=== PATIENT | female | born 1960 | race Caucasian/White ===

== ENCOUNTER 2025-05-11 14:27 | Inpatient (IN) | payer OTHER, SELFPAY ==
[~2025-05-11] VITALS: Ht 166.4 cm; Wt 66.1 kg
[~2025-05-11 14:27] MED LIST: OMEP20CA74 PO
[2025-05-11 14:55] LABS: Hematocrit 38.9 % (36.0-46.0); Hemoglobin 13.3 g/dL (12.2-16.2); Mean Corpuscular Hemoglobin 32.2 pg (28.0-32.0); Mean Corpuscular Volume 94.5 fL (80.0-100.0); Nucleated Red Blood Cells % 0.0 %
--- NOTE | 2025-05-11 15:04 | DVH ---
CHEST RADIOGRAPH Indication: CHEST PAIN Technique: Single frontal view of the chest was obtained Comparison: None FINDINGS: Lines and Tubes: None Lungs: No focal consolidation. Pleura: No effusion. No pneumothorax. Cardiomediastinal contours: Unremarkable Bones: No acute osseous abnormality. IMPRESSION: 1. No acute cardiopulmonary disease.
[2025-05-11 15:06] LABS: Potassium 3.9 mmol/L (3.5-5.1); Sodium 143 mmol/L (136-145)
[2025-05-11 15:07] LABS: Anion Gap 8 (5-15); Carbon Dioxide 28 mmol/L (20-31)
[2025-05-11 15:08] LABS: Calcium 9.9 mg/dL (8.7-10.4)
[2025-05-11 15:12] LABS: BUN/Creatinine Ratio 10.3 (10.0-20.0); Glucose 91 mg/dL (74-106)
[2025-05-11 15:13] LABS: Blood Urea Nitrogen 7 mg/dL (9-23); Chloride 107 mmol/L (98-107)
--- NOTE | 2025-05-11 17:30 | ECG ---
[facility] Test Date: 2025-05-11 Test Time: 14:32:02 Pat Name: FAREED LAMBERT Department: Room: Gender: F Formulation Scientist: DANNIELLE : 1960 Requested By: EMERGENCY EMERGENCY Order Number: [id number] Reading MD: Measurements Intervals [place] Rate: 84 P: 81 DC: 152 QRS: 117 QRSD: 91 T: 68 QT: 378 QTc: 447 Interpretive Statements Sinus rhythm Right axis deviation Baseline wander in lead(s) V2 Please click the below link to view image of tracing.
--- NOTE | 2025-05-11 17:30 | ECG ---
[facility] Test Date: 2025-05-11 Test Time: 15:23:07 Pat Name: FAREED LAMBERT Department: Room: Gender: F Freelance Interpreter/Translator: JESSICA : 1960 Requested By: EMERGENCY EMERGENCY Order Number: [id number] Reading MD: Measurements Intervals [place] Rate: 60 P: 72 IA: 168 QRS: 107 QRSD: 94 T: 58 QT: 406 QTc: 406 Interpretive Statements Sinus rhythm Atrial premature complex Right axis deviation Please click the below link to view image of tracing.
--- NOTE | 2025-05-11 17:31 | ECG ---
[facility] Test Date: 2025-05-11 Test Time: 17:24:58 Pat Name: FAREED LAMBERT Department: Room: Gender: F Quality Facilitator: JESSICA : 1960 Requested By: EMERGENCY EMERGENCY Order Number: [id number] Reading MD: Measurements Intervals [place] Rate: 60 P: 82 [place]: 185 QRS: 114 QRSD: 96 T: 43 QT: 403 QTc: 403 Interpretive Statements Sinus rhythm Left atrial enlargement Right axis deviation Please click the below link to view image of tracing.
[2025-05-11] MEDS ORDERED: MORPHINE SULFATE 4 MG/ML SYR/VIAL IV PRN (22:30)
[2025-05-11] MEDS: ATORVASTATIN 20 MG TAB PO ONE (22:30)
[2025-05-11] MEDS ORDERED: NITROGLYCERIN 0.4 MG SL TAB SL PRN (22:30)
[2025-05-11 23:34] LABS: Alanine Aminotransferase 22.0 U/L (7-40); Albumin 4.4 g/dL (3.2-4.8); Alkaline Phosphatase 95.0 U/L (46-116); Bilirubin, Total 0.8 mg/dL (0.2-1.0); Total Protein 6.7 g/dL (5.7-8.2)
[2025-05-12] VITALS (9 sets, daily range): BP systolic 104–127; BP diastolic 59–73; PULSE 57–77; RESP 16–20; TEMP 97–98.3; O2SAT 98–99
--- NOTE | 2025-05-12 00:01 | DVH ---
CLINICAL HISTORY: dizziness TECHNIQUE: Ramirez-scale, Color and Duplex Doppler imaging of the bilateral carotid systems was performe d. COMPARISON: None Findings: Right Carotid system: There is minimal plaque present in the right carotid system. Left Carotid system: There is minimal plaque present in the left carotid system. The following flow velocities were obtained (cm/sec). Right Carotid System: ICA PSV: 105 cm/sec ICA PDV: 32 cm/sec ICA/CCA Ratio: 1.5 Left Carotid System: ICA PSV: 116 cm/sec ICA PDV: 41 cm/sec ICA/CCA Ratio: 1.6 The right and left common carotid and external carotid arteries are patent. There is antegrade flow i n both vertebral arteries and external carotid arteries. IMPRESSION: LESS THAN 50% RIGHT ICA NARROWING. LESS THAN 50% LEFT ICA NARROWING. Estimation of carotid stenosis is based on velocity parameters that correlate the residual internal c arotid diameter with that of the more distal vessel in accordance with the [place] Symptomatic Carotid Endarterectomy Trial (NASCET).
[2025-05-12] MEDS ORDERED: ASPI1TAB20 PO (01:03)
[2025-05-12] MEDS ORDERED: MULT-688 PO (01:03)
[2025-05-12] MEDS ORDERED: ATOR20TA PO (01:03)
[2025-05-12 01:34] LABS: Bilirubin, Direct 0.2 mg/dL (<0.3)
[2025-05-12 01:50] LABS: Amphetamine Screen, Urine Neg (NEGATIVE)
[2025-05-12 01:51] LABS: Urine Protein, UAD TRACE (Negative)
[2025-05-12 01:53] LABS: Barbiturate Scree,Urine Neg (NEGATIVE); Benzodiazephine Screen, Urine Neg (NEGATIVE); Cannabinoid Screen, Urine Neg (NEGATIVE); Cocaine Screen, Urine Neg (NEGATIVE); Opiate Scree,Urine Neg (NEGATIVE); Phencyclidine Screen, Urine Neg (NEGATIVE)
[2025-05-12 06:11] LABS: Hematocrit 39.3 % (36.0-46.0); Hemoglobin 13.5 g/dL (12.2-16.2); Mean Corpuscular Hemoglobin 32.5 pg (28.0-32.0); Mean Corpuscular Volume 94.9 fL (80.0-100.0); Nucleated Red Blood Cells % 0.1 %
[2025-05-12 06:37] LABS: Alanine Aminotransferase 18 U/L (7-40); Albumin 4.0 g/dL (3.2-4.8); Alkaline Phosphatase 88 U/L (46-116); Anion Gap 8 (5-15); BUN/Creatinine Ratio 11.1 (10.0-20.0); Calcium 9.3 mg/dL (8.7-10.4); Carbon Dioxide 29 mmol/L (20-31); Glucose 81 mg/dL (74-106); Potassium 4.1 mmol/L (3.5-5.1); Sodium 145 mmol/L (136-145); Total Protein 6.6 g/dL (5.7-8.2)
[2025-05-12 06:38] LABS: Bilirubin, Total 1.0 mg/dL (0.2-1.0); Blood Urea Nitrogen 8 mg/dL (9-23); Chloride 108 mmol/L (98-107)
--- NOTE | 2025-05-12 11:16 | ED.PDOC ---
HPI Comments This is a 64 year old female presenting to the ED with chief complaint of chest pain. Patient reports that she has been experiencing full chest pressure with intermittent sharp pains for the past 2 weeks along with associated neck pain, dizziness, and nausea. Patient relays that she has history of similar pain in the past. Patient denies any SOB, abdominal pain, vomiting, headache, or cough. Chief Complaint: Chest Pain Time Seen by MD: 14:55 Primary Care Provider: BERT LAL Reviewed Notes: Nurses Notes, Medications, Allergies Allergies: Coded Allergies: Penicillins (Verified Allergy, Unknown, 02/22/16) Home Meds Reported Medications Omeprazole (PRILOSEC) 20 Mg Cap, 1 CAP PO DAILY 02/21/16 Information Source: Patient Mode of Arrival: Ambulatory Severity: Moderate Timing: Weeks Duration: Since onset Prehospital treatment: None Location: Chest (R), Chest (L) Radiation: Neck Quality: Pressure Onset: At Rest Cardiac Risk Factors: Hyperlipidemia PE Risk Factors: None History of: Similar pain in past Past Medical History PAST MEDICAL HISTORY: GERD, High Lipids Surgical History: Denies all surgeries BRANCH BANKER History: No Pertinent BRANCH BANKER History Family History Family History: Unobtainable Social History Smoker: Cigarettes, Greater Than 1 Pack/Day Alcohol: Occasionally Drugs: Denies Drug Use Lives In: Home Constitutional: denies: chills, diaphoresis, fatigue, fever, malaise, sweats, weakness, others EENTM: denies: blurred vision, double vision, ear bleeding, ear discharge, ear drainage, ear pain, ear ringing, eye pain, eye redness, hearing loss, mouth pain, mouth swelling, nasal discharge, nose bleeding, nose congestion, nose pain, photophobia, tearing, throat pain, throat swelling, voice changes, others Respiratory: denies: cough, hemoptysis, orthopnea, SOB at rest, shortness of breath, SOB with excertion, stridor, wheezing, others Cardiovascular: reports: chest pain; denies: dizzy spells, diaphoresis, Dyspnea on exertion, edema, irregular heart beat, left arm pain, lightheadedness, palpitations, PND, syncope, others Gastrointestinal: reports: nausea; denies: abdomen distended, abdominal pain, b lood streaked bowels, constipated, diarrhea, dysphagia, difficulty swallowing, hematemesis, melena, poor appetite, poor fluid intake, rectal bleeding, rectal pain, vomiting, others Genitourinary: denies: abnormal vagina bleeding, burning, dyspareunia, dysuria, flank pain, frequency, hematuria, incontinence, pain, , vagina discharge, urgency, others Neurological: reports: dizziness; denies: fainting, headache, left sided numbness, left sided weakness, numbness, paresthesia, pre-existing deficit, right sided numbness, right sided weakness, seizure, speech problems, tingling, tremors, weakness, others Musculoskeletal: reports: neck pain; denies: back pain, gout, joint pain, joint swelling, muscle pain, muscle stiffness, others Integumetry: denies: bruises, change in color, change in hair/nails, dryness, laceration, lesions, lumps, rash, wounds, others Allergic/Immunocompromised: denies: Difficulty Healing, Frequent Infections, Hives, Itching, others Hematologic/Lymphatic: denies: anemia, blood clots, easy bleeding, easy bruising, swollen glands, others Endocrine: denies: excessive hunger, excessive sweating, excessive thirst, excessive urination, flushing, intolerance to cold, intolerance to heat, unexplained weight gain, unexplained weight loss, others Psychiatric: denies: anxiety, bipolar disorder, depression, hopeless, panic disorder, schizophrenia, sleepless, suicidal, others All Other Systems: Reviewed and Negative Physical Exam General Appearance: No Apparent Distress, Normal HEENT: Normal ENT Inspection, Pharynx Normal, TMs Normal Neck: Full Range of Motion, Non-Tender, Normal, Normal Inspection Respiratory: Chest Non-Tender, Lungs Clear, No Accessory Muscle Use, No R espiratory Distress, Normal Breath Sounds Cardiovascular: No Edema, No JVD, No Murmur, No Gallop, Normal Peripheral Pulses, Regular Rate/Rhythm Breast Exam: Deferred Gastrointestinal: No Organomegaly, Non Tender, No Pulsatile Mass, Normal Bowel Sounds, Soft Genitalia: Deferred Pelvic: Deferred Rectal: Deferred Extremities: No calf tenderness, Normal capillary refill, Normal inspection, Normal range of motion, Non-tender, No pedal edema Musculoskeletal : Apperance: Normal Neurologic: Alert, pipe stress engineer II-XII nml as Tested, No Motor Deficits, Normal Affect, Normal Mood, No Sensory Deficits Cerebellar Function: Normal Reflexes: Normal Skin: Dry, Normal Color, Warm Lymphatic: No Adenopathy Was a procedure done? Was a procedure done?: No CP Differential Dx Differential Diagnosis: MAT, NH, PAC's Differential Diagnosis: HTN Essential, HTN Accelerated Differential Diagnosis: Gastritis, Myocardial Infarction, Pericarditis X-Ray, Labs, Meds, VS Vital Signs Date Time Temp Pulse Resp B/P (MAP) Pulse Ox O2 Delivery O2 Flow Rate FiO2 05/11/25 17:27 60 05/11/25 16:20 66 05/11/25 16:20 97.7 66 16 147/75 (99) 100 97.7 05/11/25 15:23 60 05/11/25 14:32 84 05/11/25 14:30 99.0 82 18 145/74 97 99.0 Lab Test 05/11/25 17:30 05/11/25 14:41 05/11/25 13:21 Range/Units Troponin I High Sensitivity Pending < 3 L < 3 L </=34 ng/L White Blood Count 6.1 4.4-10.8 10^3/uL Red Blood Count 4.11 4.0-5.20 10^6/uL Hemoglobin 13.3 12.2-16.2 g/dL Hematocrit 38.9 36.0-46.0 % Mean Corpuscular Volume 94.5 80.0-100.0 fL Mean Corpuscular Hemoglobin 32.2 H 28.0-32.0 pg Mean Corpuscular Hemoglobin Concent 34.1 32.0-36.0 g/dL Red Cell Distribution Width 13.2 11.8-14.3 % Platelet Count 266 140-450 10^3/uL Mean Platelet Volume 7.3 6.9-10.8 fL Neutrophils (%) (Auto) 43.7 37.0-80.0 % Lymphocytes (%) (Auto) 46.1 10.0-50.0 % Monocytes (%) (Auto) 7.9 0.0-12.0 % Eosinophils (%) (Auto) 1.7 0.0-7.0 % Basophils (%) (Auto) 0.6 0.0-2.0 % Neutrophils # (Auto) 2.7 1.6-8.6 10 ^3/uL Lymphocytes # (Auto) 2.8 0.4-5.4 10 ^3/uL Monocytes # (Auto) 0.5 0-1.3 10 ^3/uL Eosinophils # (Auto) 0.1 0-0.8 10 ^3/uL Basophils # (Auto) 0 0-0.2 10 ^3/uL Nucleated Red Blood Cells 0.0 % Sodium Level 143 136-145 mmol/L Potassium Level 3.9 3.5-5.1 mmol/L Chloride Level 107 98-107 mmol/L Carbon Dioxide Level 28 20-31 mmol/L Anion Gap 8 5-15 Blood Urea Nitrogen 7 L 9-23 mg/dL Creatinine 0.68 0.550-1.02 mg/dL Glomerular Filtration Rate Calc 97 >90 mL/min BUN/Creatinine Ratio 10.3 10.0-20.0 Serum Glucose 91 74-106 mg/dL Calcium Level 9.9 8.7-10.4 mg/dL [place] [address] Ph: [phone] DIAGNOSTIC IMAGING Diagnostic Imaging Report : [id number] Signed PATIENT: FAREED LAMBERT ACCT: [id number] UNIT: [id number] : 1960 LOC: ER ROOM / BED: / AGE / SEX: 64 / F ADM STATUS: REG ER SERVICE 33 ORDERING PHYSICIAN: ER PROCEDURE(s): CXR1 - CHEST XRAY 1 VIEW REASON: CHEST PAIN ORDER NUMBER(s): [id number], ACCESSION NUMBER(s): [id number] CHEST RADIOGRAPH Indication: CHEST PAIN Technique: Single frontal view of the chest was obtained Comparison: None FINDINGS: Lines and Tubes: None Lungs: No focal consolidation. Pleura: No effusion. No pneumothorax. Cardiomediastinal contours: Unremarkable Bones: No acute osseous abnormality. IMPRESSION: 1. No acute cardiopulmonary disease. ATED BY: SURJIT MARTI Jr., DO DICTATED DATE/TIME: 05/11/251501 SIGNED BY: SURJIT MARTI Jr., DO SIGNED DATE/TIME: 05/11/251501 CC: Time of 1ST Reevaluation: 15:54 Reevaluation 1ST: Unchanged Patient Education/Counseling: Diagnosis, Treatment Family Education/Counseling: No Family Present SEPSIS Sepsis Screen Date sepsis recognized/suspect: May 11, 2025 Time Sepsis recognized/suspect: 1432 Recent Procedure: No On Antibiotic Therapy: No Respiratory Rate >20: No Heart Rate >90: No Temp<36 C (96.8 F) or >38.3 C: No SBP <90 or MAP <65 mmHG: No New Acute Mental Status Change: No Is the patient on CPAP, BIPAP,: No Physician Orders Chest Xray 1 View (05/11/25 14:34) Troponin-I Hs (05/11/25 17:34) Vital Signs Date Time Temp Pulse Resp B/P (MAP) Pulse Ox O2 Delivery O2 Flow Rate FiO2 05/11/25 17:27 60 05/11/25 16:20 66 05/11/25 16:20 97.7 66 16 147/75 (99) 100 97.7 05/11/25 15:23 60 05/11/25 14:32 84 05/11/25 14:30 99.0 82 18 145/74 97 99.0 Laboratory Tests Test 05/11/25 14:41 White Blood Count 6.1 10^3/uL (4.4-10.8) Departure 1 Departure Time of Disposition: 18:02 (Patient presented with chest pain that was concerning for possible STEMI, ACS, PE, Pneumonia, Muscle Strain, COPD, Dissection. Data: 1. I ordered and reviewed the result of at least 3 labs including a CBC, BMP, and Troponin. 2. I independently interpreted the following tests: EKG which shows sinus arrythmia the and Chest X-ray which shows benign.Risk:This patient has a high risk of morbidity due to further diagnostic testing or treatment and may suffer from an acute cardiac or respiratory disorder. Workup reveals cornern for acs and patient should be admitted for further workup and possible expert consultation. ) Impression: Primary Impression: Acute chest pain Disposition: ADMITTED INPATIENT Admit to: Tele Condition: Guarded Critical Care Note Critical Care Time?: Yes (35 min-critical care time only) Critical care comment: Acute chest pain Authorized and Performed by: Stephany Ayala MD Total critical care time: Approximately 37 minutes Due to a high probability of clinically significant, life threatening deterioration, the patient required my highest level of preparedness to intervene emergently and I personally spent this critical care time directly and personally managing the patient. This critical care time included obtaining a hi story; examining the patient; pulse oximetry; ordering and review of studies; arranging urgent treatment with development of a management plan; evaluation of patient's response to treatment; frequent reassessment; and, discussions with other providers. This critical care time was performed to assess and manage the high probability of imminent, life-threatening deterioration that could result in multi-organ failure. It was exclusive of separately billable procedures and treating other patients and teaching time. Please see my other sections and the rest of the note for further information on patient assessment and treatment. Stability Stability form required: No Heart Score Heart Score: Heart Score Response (Comments) Value History Highly Suspicious 2 EKG Normal 0 Age 45-64 1 Risk Factors >3 or Hx ASHD 2 Troponin Normal limit 0 Total 5 I personally scribed for STEPHANY AYALA MD ([email or web address]) on 05/11/25 at 14:56. Electronically submitted by Tim Frazier ([email or web address]). I personally scribed for STEPHANY AYALA MD ([email or web address]) on 05/11/25 at 16:12. Electronically submitted by Nahomi Montalvo ([email or web address]). STEPHANY AYALA MD May 11, 2025 14:56
--- NOTE | 2025-05-12 11:26 | DVHHPRES ---
History of Present Illness Resident Creating Document: CHINYERE PASTRANA History of Present Illness Patient is a 64-year-old female with past medical history of hyperipidemia and GERD presented to [facility] ED with complaint of chest pain. Patient has had progressive worsening left-sided chest pain for the 2 weeks, rated at 9/10 in intensity. The pain is described as sharp, pressure-like pain, radiating to neck, associated with dizziness. Patient denies shortness of breath, abdominal pain, vomiting, headache, or cough. She smokes more than one pack of cigarettes per day for 40 years. On evaluation in the ED, patient is afebrile, vitals are stable. Initial labs show Troponin <3 and BUN 7. Chest X- ray shows no acute cardiopulmonary disease. Patient is admitted for further evaluation and management. Cardiovascular: hyperipidemia GI: GERD Past Surgical History: None Family History: None Smoke: # pack years ALCOHOL: occassional Drugs: None Lives: with Family Review of Systems Review of Systems Constitutional: Dizziness Eyes: No Pain, No Vision change, No Conjunctivae inflammation, No Eyelid inflammation, No Other, No Redness ENT: No Ear pain, No Ear discharge, No Nose pain, No Nose discharge, No Nose congestion, No Mouth pain, No Mouth swelling, No Throat pain, No Throat swelling, No Other Cardiovascular: Chest Pain, No Palpitations, No Orthopnea, No Paroxysmal No Dyspnea, No Edema, No Lt Headedness, No Other Respiratory: No Cough, No Dry, No Shortness of breath, No SOB with exertion, No Wheezing, No Hemoptysis, No Pleuritic Pain, No Sputum, No Other Gastrointestinal: No Nausea, No Vomiting, No Abdominal Pain, No Diarrhea, No Constipation, No Melena, No Hematochezia, No Other Genitourinary: No Dysuria, No Frequency, No Incontinence, No Hematuria, No Retention, No Other Musculoskeletal: No other, neck pain, No shoulder pain, No arm pain, No back pain, No hand pain, No leg pain, No foot pain Skin: No Rash, No Lesions, No Jaundice, No Bruising, No Other Allergies: Coded Allergies: NO KNOWN ALLERGIES (Unverified , 05/12/25) Exam Vital Signs Vital Signs Date Time Temp Pulse Resp B/P (MAP) Pulse Ox O2 Delivery O2 Flow Rate FiO2 05/11/25 20:16 97.9 72 16 128/78 (95) 99 97.9 Exam General Appearance: Cooperative. Well developed. Well nourished. NAD Head Exam: Normal inspection Neck Exam: Normal inspection. Neck tenderness. Normal alignment Pulmonary/Respiratory: Chest non-tender. Clear bilateral breath sounds, no crackles, no wheezing. Cardiovascular/Chest: Regular rate and rhythm. No murmurs. No JVD. Peripheral Pulses: 2+ Radial (R). 2+ Radial (L). 2+ Pedal (R). 2+ Pedal (L) Abdominal Exam: Normal bowel sounds. Soft. normal abdomen, no visible veins, Nontender. No hepatospenomegaly. No masses Ankle Exam: Negative ankle edema Lower extremities: Negative lower extremity edema Neuro/Mental Status: A&O x4. Coherent. Thoughts/Psych: Normal thought pattern. Appropriate mood and affect. Good judgement and insight Skin Exam: Normal inspection. Normal color. Warm. Dry Labs/Xrays Labs Test 05/11/25 17:30 05/11/25 14:41 Range/Units Troponin I High Sensitivity < 3 L </=34 ng/L White Blood Count 6.1 4.4-10.8 10^3/uL Red Blood Count 4.11 4.0-5.20 10^6/uL Hemoglobin 13.3 12.2-16.2 g/dL Hematocrit 38.9 36.0-46.0 % Mean Corpuscular Volume 94.5 80.0-100.0 fL Mean Corpuscular Hemoglobin 32.2 H 28.0-32.0 pg Mean Corpuscular Hemoglobin Concent 34.1 32.0-36.0 g/dL Red Cell Distribution Width 13.2 11.8-14.3 % Platelet Count 266 140-450 10^3/uL Mean Platelet Volume 7.3 6.9-10.8 fL Neutrophils (%) (Auto) 43.7 37.0-80.0 % Lymphocytes (%) (Auto) 46.1 10.0-50.0 % Monocytes (%) (Auto) 7.9 0.0-12.0 % Eosinophils (%) (Auto) 1.7 0.0-7.0 % Basophils (%) (Auto) 0.6 0.0-2.0 % Neutrophils # (Auto) 2.7 1.6-8.6 10 ^3/uL Lymphocytes # (Auto) 2.8 0.4-5.4 10 ^3/uL Monocytes # (Auto) 0.5 0-1.3 10 ^3/uL Eosinophils # (Auto) 0.1 0-0.8 10 ^3/uL Basophils # (Auto) 0 0-0.2 10 ^3/uL Nucleated Red Blood Cells 0.0 % Sodium Level 143 136-145 mmol/L Potassium Level 3.9 3.5-5.1 mmol/L Chloride Level 107 98-107 mmol/L Carbon Dioxide Level 28 20-31 mmol/L Anion Gap 8 5-15 Blood Urea Nitrogen 7 L 9-23 mg/dL Creatinine 0.68 0.550-1.02 mg/dL Glomerular Filtration Rate Calc 97 >90 mL/min BUN/Creatinine Ratio 10.3 10.0-20.0 Serum Glucose 91 74-106 mg/dL Calcium Level 9.9 8.7-10.4 mg/dL SEPSIS Sepsis Screen Date sepsis recognized/suspect: May 11, 2025 Time Sepsis recognized/suspect: 1619 Recent Procedure: No On Antibiotic Therapy: No Respiratory Rate >20: No Heart Rate >90: No Temp<36 C (96.8 F) or >38.3 C: No SBP <90 or MAP <65 mmHG: No New Acute Mental Status Change: No Is the patient on CPAP, BIPAP,: No Physician Orders Chest Xray 1 View (05/11/25 14:34) Vital Signs Date Time Temp Pulse Resp B/P (MAP) Pulse Ox O2 Delivery O2 Flow Rate FiO2 05/11/25 20:16 97.9 72 16 128/78 (95) 99 97.9 05/11/25 17:27 60 05/11/25 16:20 66 05/11/25 16:20 97.7 66 16 147/75 (99) 100 97.7 05/11/25 15:23 60 05/11/25 14:32 84 05/11/25 14:30 99.0 82 18 145/74 97 99.0 Laboratory Tests Test 05/11/25 14:41 White Blood Count 6.1 10^3/uL (4.4-10.8) Assessment/Plan Assessment/Plan Unstable angina Acute intractable chest pain r/o ACS Carotid ultrasound: Less than 50% stenosis of the left/right internal carotid artery (ICA) Chest X-ray: No acute cardiopulmonary disease. EKG: Sinus rhythm. Left atrial enlargement. Right axis deviation. Echocardiogram ordered Pain management with Morphine 2 MG IV q4h Aspirin 81 mg PO daily Atorvastatin 40 mg PO hs Nitroglycerin sublingual 0.4 mg sl q5minp BNP CRP ESR UA and UDS Hepatic panel Hyperlipidemia Atorvastatin 40 mg PO hs Nicotine use I have counseled the patient on the importance of complete nicotine cessation for over 15 minutes. Diet: Cardiac Goals of care: Full code, discussed for >30 minutes on 05/11/25 Plan discussed with patient Plan discussed with Dr. Ochoa Plan discussed with: Patient Date of Service: May 11, 2025 Billing Provider: JOSE EDUARDO OCHOA MD Common Visit Codes: 74178-HMFHIXJ INP/OBS CARE (HIGH) Secondary Visit Codes: 58112-[id number] CARE PLAN 30 MINUTES CHINYERE PASTRANA RESIDENT May 11, 2025 21:33
--- NOTE | 2025-05-12 14:28 | DVH ---
Procedure: CT HEAD WITHOUT CONTRAST Study Date and Requested Time: 05/12/2025 01:51 PM History: to r/o any intracranial abnormality Comparison: None Dose: CTDI: 58.26 mGy DLP: 1118.97 mGycm Technique: Multiplanar images obtained through the brain without intravenous contrast. Findings: Wykx-al-pxrikolu frontoparietal predominant brain Atrophy. Mild chronic small vessel ischemic changes . No hemorrhages, masses, mass effect, midline shift, herniation or cytotoxic edema following a large v ascular territory. No intra-axial or extra-axial fluid collections. No evidence of hydrocephalus. The basal cisterns are patent. The pituitary gland, sella and parasellar regions are unremarkable. The cerebellar tonsils are in nor mal position. The cerebellum is unremarkable. The orbits and globes are unremarkable. Mucoperiosteal thickening of the frontal and ethmoid sinuses. Otherwise, the paranasal sinuses and mastoids are clear. There are no worrisome calvarial lesions. Impression: No evidence of acute intracranial abnormality. Bilateral ethmoid and frontal sinus disease.
--- NOTE | 2025-05-12 17:22 | DVHPNRES ---
Progress Note Date Seen: May 12, 2025 Resident Creating Document: LILIAN NICHOLE RESIDENT Medical Necessity Reason Pt with a Central, PICC or Fol: No Subjective Review of Systems 64-year-old female with past medical history of GERD and dyslipidemia presented with complaints of chest pain and dizziness since 2 weeks. She rates the chest pain 7/10, pressure-like, on and off, radiating to neck and bilateral shoulders with no aggravating or alleviating factors. Patient denies any fever or shortness of breath. She reports that she has had dizziness both while sitting and standing. She has a history of stress test done 2 years ago. PMHx:GERD and dyslipidemia PSHx: Tubal ligation Family history: Dementia in mother Social history: 40 pack year Smoking history, denies alcohol use and drug use Home medication: Lipitor, aspirin Allergic history: No known Allergies General: patient denies fever, fatigue, weaknes, sweating, any recent changes in appetite and weight HEENT: No headaches, visiual changes, hearing loss, tinnitus, nasal congestion and discharge, and sore throat. Complains neck pain Cardiovascular: Denies palpitations, dyspnea on exertion, orthopnea, or claudication. Complains of chest pain Respiratory: No cough, and wheezing. Gastrointestinal: Denies nausea, vomiting, dysphagia, odynophagia, heartburn, abdominal pain, flatulence, bloating, diarrhea, constipation, change in stool, or blood in stool. Genitourinary: No dysuria, hematuria, discharge, frequency, urgency, nocturia, incontinence, and urinary retention. Endocrine: No heat or cold intolerance, polydipsia, polyuria, and polyphagia. Neurological: No dizziness, extremity weakness and numbness, tremors, gait disturbance, seizures, and memory impairment. Psychiatric: Denies depression, anxiety,or insomnia. Musculoskeletal: Denies neck pain, stiffness and swelling, back pain, muscle weakness, joint pain, stiffness, swelling, or limited range of motion. Skin: No rashes, itching, skin lesion, changes in hair, nail, skin texture and breast. Hematologic/Lymphatic: Denies easy bruising, bleeding tendencies, or lymph node enlargement. Objective vital signs Vital Sign Date Time Temp Pulse Resp B/P (MAP) Pulse Ox O2 Delivery O2 Flow Rate FiO2 05/12/25 13:00 98.3 59 16 109/65 (80) 98 98.3 120/65 (83) 110/70 (83) 05/12/25 08:00 Room Air* 0 21 Total Intake and Output 05/11/25 05/11/25 05/12/25 15:00 23:00 07:00 Intake Total 500 ml Balance 500 ml medications Current Medications Medications Dose Ordered Sig/Jonah Route Start Time Stop Time Status Last Admin Dose Admin Nitroglycerin 0.4 mg Q5MINP PRN SL 05/11/25 22:30 Aspirin 81 mg DAILY PO 05/12/25 10:00 05/12/25 11:03 81 MG Atorvastatin Calcium 40 mg HS PO 05/12/25 22:00 Morphine Sulfate 2 mg Q4HPRN PRN IV 05/11/25 22:30 Azithromycin 500 mg DAILY PO 05/13/25 10:00 Ceftriaxone Sodium 50 ml @ 100 mls/hr DAILY@09 IV 05/13/25 09:00 Examination General Appearance: Alert, Oriented X3, Cooperative, No acute distress HEENT: Atraumatic, PERRLA, EOMI, Mucous membrane moist/pink, tenderness in the neck Respiratory: Clear to auscultation, Normal air movement Cardiovascular: Regular rate, Normal S1, Normal S2, No murmurs, chest wall tenderness present Abdominal: Normal bowel sounds, Soft, No tenderness, No hepatospenomegaly, No masses Extremities: No clubbing, No cyanosis, No edema, Normal pulses, No tenderness/swelling Skin: No rashes, No breakdown, No significant lesion Neuro: Normal gait, Normal speech, Strength at 5/5 X4 ext, Normal tone, Sensation intact, Cranial nerves 3-12 NL, Reflexes 2+ Psych/Mental Status: Mental status NL, Mood NL laboratory and microbiology Laboratory Tests 05/12/25 05:50 Test 05/12/25 05:50 Range/Units Serum Glucose 81 74-106 mg/dL Problem List/Assessment/Plan Problem List/Assessment/Plan Assessment and plan Acute intractable chest pain likely musculoskeletal/bronchitis Carotid artery stenosis Carotid ultrasound: Less than 50% stenosis of the left/right internal carotid artery (ICA) Chest X-ray: No acute cardiopulmonary disease. EKG: Sinus rhythm. Left atrial enlargement. Right axis deviation. Echocardiogram ordered Pain management with Morphine 2 MG IV q4h Aspirin 81 mg PO daily Atorvastatin 40 mg PO hs Nitroglycerin sublingual 0.4 mg sl q5minp BNP CRP ESR UA and UDS Hepatic panel Bilateral Sinusitis of the ethmoid and frontal sinus CT head-Bilateral ethmoid and frontal sinus disease. Hyperlipidemia Atorvastatin 40 mg PO hs Nicotine use I have counseled the patient on the importance of complete nicotine cessation for over 13 minutes. Diet: Cardiac Goals of care: Full code, discussed for >20 minutes Plan discussed with patient Plan discussed with Dr. Brito Plan discussed with: Patient My Orders My Orders Orders - LILIAN NICHOLE Procedure Category Date Status Time Complete Blood Count LAB 05/13/25 Verified 04:00 Comprehensive LAB 05/13/25 Verified Metabolic Panel 04:[address] 05/12/25 Resulted 13:28 Date of Service: May 12, 2025 Billing Provider: PEE BRITO MD Common Visit Codes: [id number] INP/OBS CARE(HIGH) LILIAN NICHOLE May 12, 2025 17:22 PEE BRITO MD May 15, 2025 20:54
[2025-05-12] MEDS: AZITHROMYCIN 250 MG TAB PO ONE (18:02)
[2025-05-12 18:08] LABS: COVID19 ANTIGEN SOFIA FIA NEGATIVE (NEGATIVE)
[2025-05-12] MEDS: ATORVASTATIN 20 MG TAB PO SCH (21:24)
[2025-05-13 01:19] VITALS: BP 101/52; PULSE 59; RESP 18; TEMP 96.6; O2SAT 96
--- NOTE | 2025-05-13 03:56 | DVHSR ---
APPROVED REPORT EXAM: LIMITED Two-dimensional and M-mode echocardiogram with Doppler and color Doppler. Blood Pressure: 127/73 mmHg INDICATION Chest Pain RISK FACTORS Height: 5'5, Weight: 135 DIMENSIONS LVDd4.0 (3.8-5.7cm)LA (2D)3.3 (1.9-4.0cm)Aortic Root3.1 (2.0-3.7cm) LVDs2.6 (2.5-4.0cm)LA (MM) (1.9-4.0cm)Aortic Cusp Exc1.4 (1.5-2.0cm) EF (%) 65.0 (55-70%)Rt. Atrium3.9 (1.9-4.0cm)Asc. Aorta cm IVSd0.8 (0.7-1.1cm)RV (D)3.7 (1.8-2.4cm) PWd1.0 (0.7-1.1cm) Mitral Valve MitralMitral Stenosis E wave0.88m/sMV Mean GR.mmHg A wave0.74m/sMV Peak GR.44mmHg E/A ratio1.22D MVAcm2 DECEL [id number] 1/2 Timems Aortic Valve Aortic ValveAortic Stenosis V10.95m/Mihir Mean GR.mmHg V21.26m/Mihir Peak GR.6mmHg LVOT Diameter1.7 (1.8-2.4cm)Doppler AVA1.71cm2 Tricuspid Valve TR Velocity1.64m/s [id number] Other Information Quality : Technically LimitedRhythm : Technically limited study due to patient position.body habitus. Conclusion LV EF IS 65% ABD IS NORMAL NORMAL VALVES NORMAL RV FUNCTION NO EFFUSION
[2025-05-13 05:23] VITALS: BP 118/60; PULSE 66; RESP 18; TEMP 97.9; O2SAT 97
[2025-05-13 07:12] LABS: Hematocrit 39.6 % (36.0-46.0); Hemoglobin 13.6 g/dL (12.2-16.2); Mean Corpuscular Hemoglobin 32.4 pg (28.0-32.0); Mean Corpuscular Volume 94.3 fL (80.0-100.0); Nucleated Red Blood Cells % 0.0 %
[2025-05-13 07:25] LABS: Alanine Aminotransferase 18 U/L (7-40); Albumin 4.1 g/dL (3.2-4.8); Alkaline Phosphatase 85 U/L (46-116); Anion Gap 7 (5-15); BUN/Creatinine Ratio 17.2 (10.0-20.0); Blood Urea Nitrogen 11 mg/dL (9-23); Calcium 9.4 mg/dL (8.7-10.4); Carbon Dioxide 28 mmol/L (20-31); Glucose 101 mg/dL (74-106); Potassium 4.4 mmol/L (3.5-5.1); Sodium 145 mmol/L (136-145); Total Protein 6.6 g/dL (5.7-8.2)
[2025-05-13 07:26] LABS: Bilirubin, Total 0.9 mg/dL (0.2-1.0)
[2025-05-13 07:27] LABS: Chloride 110 mmol/L (98-107)
[2025-05-13 08:00] VITALS: PULSE 61
[2025-05-13 08:58] VITALS: BP 102/60; PULSE 59; RESP 17; TEMP 98; O2SAT 96
--- NOTE | 2025-05-13 09:16 | DVHDSRES ---
Discharge Summary Date of Admission Resident Creating Document: LILIAN NICHOLE RESIDENT May 11, 2025 at 22:16 Date of Discharge: May 13, 2025 Admitting Diagnosis Acute chest pain r/o ACS Labs/Diagnostic Data: Laboratory Results Test 05/13/25 06:40 05/12/25 17:20 05/12/25 01:20 05/11/25 17:30 White Blood Count 5.4 10^3/uL (4.4-10.8) Red Blood Count 4.20 10^6/uL (4.0-5.20) Hemoglobin 13.6 g/dL (12.2-16.2) Hematocrit 39.6 % (36.0-46.0) Mean Corpuscular Volume 94.3 fL (80.0-100.0) Mean Corpuscular Hemoglobin 32.4 pg (28.0-32.0) Mean Corpuscular Hemoglobin Concent 34.4 g/dL (32.0-36.0) Red Cell Distribution Width 13.4 % (11.8-14.3) Platelet Count 245 10^3/uL (140-450) Mean Platelet Volume 7.3 fL (6.9-10.8) Neutrophils (%) (Auto) 46.1 % (37.0-80.0) Lymphocytes (%) (Auto) 41.4 % (10.0-50.0) Monocytes (%) (Auto) 9.0 % (0.0-12.0) Eosinophils (%) (Auto) 2.8 % (0.0-7.0) Basophils (%) (Auto) 0.7 % (0.0-2.0) Neutrophils # (Auto) 2.5 10 ^3/uL (1.6-8.6) Lymphocytes # (Auto) 2.3 10 ^3/uL (0.4-5.4) Monocytes # (Auto) 0.5 10 ^3/uL (0-1.3) Eosinophils # (Auto) 0.2 10 ^3/uL (0-0.8) Basophils # (Auto) 0 10 ^3/uL (0-0.2) Nucleated Red Blood Cells 0.0 % Sodium Level 145 mmol/L (136-145) Potassium Level 4.4 mmol/L (3.5-5.1) Chloride Level 110 mmol/L (98-107) Carbon Dioxide Level 28 mmol/L (20-31) Anion Gap 7 (5-15) Blood Urea Nitrogen 11 mg/dL (9-23) Creatinine 0.64 mg/dL (0.550-1.02) Glomerular Filtration Rate Calc 99 mL/min (>90) BUN/Creatinine Ratio 17.2 (10.0-20.0) Serum Glucose 101 mg/dL (74-106) Calcium Level 9.4 mg/dL (8.7-10.4) Total Bilirubin 0.9 mg/dL (0.2-1.0) Aspartate Amino Transferase (AST) 23 U/L (13-40) Alanine Aminotransferase (ALT) 18 U/L (7-40) Alkaline Phosphatase 85 U/L (46-116) Total Protein 6.6 g/dL (5.7-8.2) Albumin 4.1 g/dL (3.2-4.8) Influenza Type A Antigen Negative (Negative) Influenza Type B Antigen Negative (Negative) SARS-CoV-2 Antigen (Rapid) Negative (NEGATIVE) Urine Color Yellow (Yellow) Urine Clarity Turbid (Clear) Urine pH 5.0 (5.0-9.0) Urine Specific [place] 1.027 (1.001-1.035) Urine Protein Trace (Negative) Urine Ketones Trace (Negative) Urine Blood Negative /uL (Negative) Urine Nitrite Negative (Negative) Urine Bilirubin Negative (Negative) Urine Urobilinogen 2 mg/dL (Negative) Urine Leukocyte Esterase Trace /uL (Negative) Urine RBC 9 /hpf (0 - 4) Urine Microscopic WBC 12 /HPF (0-5) Urine Squamous Epithelial Cells Few /hpf (<5) Urine Calcium Oxalate Crystals Mod (None Seen) Urine Bacteria None seen /hpf (None Seen) Urine Mucus Few (None Seen) Urine Glucose Normal mg/dL (Normal) Urine Opiates Screen Neg (NEGATIVE) Urine Fentanyl Screen Neg (NEGATIVE) Urine Barbiturates Screen Neg (NEGATIVE) Urine Phencyclidine Screen Neg (NEGATIVE) Urine Amphetamines Screen Neg (NEGATIVE) Urine Benzodiazepines Screen Neg (NEGATIVE) Urine Cocaine Screen Neg (NEGATIVE) Urine Cannabinoids Screen Neg (NEGATIVE) Troponin I High Sensitivity < 3 ng/L (</=34) Test 05/11/25 14:41 Erythrocyte Sedimentation Rate 8 mm/hr (0-20) Direct Bilirubin 0.2 mg/dL (<0.3) C-Reactive Protein High Sensitivity 0.04 mg/dL (<1.0) B-Type Natriuretic Peptide 38.51 pg/mL (0-100) Other Laboratory Tests 05/13/25 06:40 Brief Hx & Hospital Course: Ms. Padilla, a 64-year-old female with a history of GERD and dyslipidemia presented with chest pain and dizziness ongoing for two weeks. She describes the chest pain as pressure-like, rated 7/10, intermittent, and radiating to the neck and both shoulders, with no clear aggravating or relieving factors. Dizziness occurs both while sitting and standing. She denies fever or shortness of breath. Her past surgical history includes tubal ligation, and her family history is notable for dementia in her mother. She has a 40 pack-year smoking history but denies alcohol or drug use. Home medications include Lipitor and aspirin, and she has no known allergies. She previously underwent a stress test two years ago. Discharge Day physical examination: General Appearance: Alert, Oriented X3, Cooperative, No acute distress HEENT: Atraumatic, PERRLA, EOMI, Mucous membrane moist/pink Respiratory: Clear to auscultation, Normal air movement Cardiovascular: Regular rate, Normal S1, Normal S2, No murmurs, chest wall tenderness present Abdominal: Normal bowel sounds, Soft, No tenderness, No hepatosplenomegaly, No masses Extremities: No clubbing, No cyanosis, No edema, Normal pulses, No tenderness/swelling Skin: No rashes, No breakdown, No significant lesion Neuro: Normal gait, Normal speech, Strength at 5/5 X4 ext., Normal tone, Sensation intact, Cranial nerves 3-12 NL, Reflexes 2+ Psych/Mental Status: Mental status NL, Mood NL Medical conditions treated in hospital: #Acute intractable chest pain likely musculoskeletal/bronchitis: #GERD: known disease with reflux esophagitis, mild. PPI to continue. Lifestyle modification, avoid spicy food and NSAIDs. #Acute coronary syndrome ruled out. Last stress test within past 2-3 years -ve. #Dylipidemia, High ASCVD score on: Aspirin 81 mg PO daily Atorvastatin 40 mg PO HS #UTI: UA and UDS #Headache: CT shows b/l ethmoid and frontal sinus disease. #Left atrial enlargement #Right axis deviation #Hyperlipidemia: Atorvastatin 40 mg PO HS #Active nicotine abuse: >11 minutes of smoking cessation counseling done. Home Varenicline and NicoDerm to continue. #Goals of care: Full code in hospital. #Anxiety disorder: Bupropion Hcl 150 mg daily, continue Disposition: Home, follow up with PCP (Dr. Ceci Morales) at discharge. As needed follow up with Dr. Bailey (established [facility].) New Medications: PPI x 30 days, Augmentin x 7 days. For headache as needed Tylenol. Discharge planning, counseling and clinical work needed 33 minutes. Patient is agreeable. Plan discussed with Dr. Brito. Operations or Procedures [place] [id number] Ph: [phone] DIAGNOSTIC IMAGING Diagnostic Imaging Report : [id number] Signed PATIENT: FAREED LAMBERT ACCT: [id number] UNIT: [id number] : 1960 LOC: [facility] ROOM / BED: [facility] / A AGE / SEX: 64 / F ADM STATUS: ADM IN SERVICE 1328 ORDERING PHYSICIAN: LILIAN NICHOLE RESIDENT PROCEDURE(s): HWOCT - HEAD WITHOUT CONTRAST REASON: to r/o any intracranial abnormality ORDER NUMBER(s): [id number], ACCESSION NUMBER(s): [id number] Procedure: CT HEAD WITHOUT CONTRAST Study Date and Requested Time: 05/12/2025 01:51 PM History: to r/o any intracranial abnormality Comparison: None Dose: CTDI: 58.26 mGy DLP: 1118.97 mGycm Technique: Multiplanar images obtained through the brain without intravenous contrast. Findings: [id number] frontoparietal predominant brain Atrophy. Mild chronic small vessel ischemic changes. No hemorrhages, masses, mass effect, midline shift, herniation or cytotoxic edema following a large vascular territory. No intra-axial or extra-axial fluid collections. No evidence of hydrocephalus. The basal cisterns are patent. The pituitary gland, sella and parasellar regions are unremarkable. The cerebellar tonsils are in normal position. The cerebellum is unremarkable. The orbits and globes are unremarkable. Mucoperiosteal thickening of the frontal and ethmoid sinuses. Otherwise, the paranasal sinuses and mastoids are clear. There are no worrisome calvarial lesions. Impression: No evidence of acute intracranial abnormality. Bilateral ethmoid and frontal sinus disease. ATED BY: DIONNA WATSON DO DICTATED DATE/TIME: 05/12/251425 SIGNED BY: DIONNA WATSON DO SIGNED DATE/TIME: 05/12/251425 CC: [place] [id number] Ph: [phone] DIAGNOSTIC IMAGING Diagnostic Imaging Report : [id number] Signed PATIENT: FAREED LAMBERT ACCT: [id number] UNIT: [id number] : 1960 LOC: CENTRAL ROOM / BED: [facility] / AGE / SEX: 64 / F ADM STATUS: ADM IN SERVICE 15 ORDERING PHYSICIAN: CHINYERE PASTRANA RESIDENT PROCEDURE(s): CARCL - CAROTID DUPLX W COLOR DOP REASON: dizziness ORDER NUMBER(s): [id number], ACCESSION NUMBER(s): [id number] CLINICAL HISTORY: dizziness TECHNIQUE: Ramirez-scale, Color and Duplex Doppler imaging of the bilateral carotid systems was performed. COMPARISON: None Findings: Right Carotid system: There is minimal plaque present in the right carotid system. Left Carotid system: There is minimal plaque present in the left carotid system. The following flow velocities were obtained (cm/sec). Right Carotid System: ICA PSV: 105 cm/sec ICA PDV: 32 cm/sec ICA/CCA Ratio: 1.5 Left Carotid System: ICA PSV: 116 cm/sec ICA PDV: 41 cm/sec ICA/CCA Ratio: 1.6 The right and left common carotid and external carotid arteries are patent. There is antegrade flow in both vertebral arteries and external carotid arteries. IMPRESSION: LESS THAN 50% RIGHT ICA NARROWING. LESS THAN 50% LEFT ICA NARROWING. Estimation of carotid stenosis is based on velocity parameters that correlate the residual internal carotid diameter with that of the more distal vessel in accordance with the [place] Symptomatic Carotid Endarterectomy Trial (NASCET). ATED BY: ROQUE HOLGUIN MD DICTATED DATE/TIME: 05/11/252357 SIGNED BY: ROQUE HOLGUIN MD SIGNED DATE/TIME: 05/11/252357 CC: [place] [id number] Ph: [phone] DIAGNOSTIC IMAGING Diagnostic Imaging Report : [id number] Signed PATIENT: FAREED LAMBERT ACCT: [id number] UNIT: [id number] : 1960 LOC: ER ROOM / BED: / AGE / SEX: 64 / F ADM STATUS: REG ER SERVICE 33 ORDERING PHYSICIAN: ER PROCEDURE(s): CXR1 - CHEST XRAY 1 VIEW REASON: CHEST PAIN ORDER NUMBER(s): [id number], ACCESSION NUMBER(s): [id number] CHEST RADIOGRAPH Indication: CHEST PAIN Technique: Single frontal view of the chest was obtained Comparison: None FINDINGS: Lines and Tubes: None Lungs: No focal consolidation. Pleura: No effusion. No pneumothorax. Cardiomediastinal contours: Unremarkable Bones: No acute osseous abnormality. IMPRESSION: 1. No acute cardiopulmonary disease. ATED BY: SURJIT MARTI Jr., DO DICTATED DATE/TIME: 05/11/251501 SIGNED BY: SURJIT MARTI Jr., DO SIGNED DATE/TIME: 05/11/251501 CC: Condition at Discharge: Fair Final Diagnosis/Problems List #Acute intractable chest pain likely musculoskeletal/bronchitis: #GERD: known disease with reflux esophagitis, mild. PPI to continue. Lifestyle modification, avoid spicy food and NSAIDs. #Acute coronary syndrome ruled out. Last stress test within past 2-3 years -ve. #Dylipidemia, High ASCVD score on: Aspirin 81 mg PO daily Atorvastatin 40 mg PO HS #UTI: UA and UDS #Headache: CT shows b/l ethmoid and frontal sinus disease. #Left atrial enlargement #Right axis deviation #Hyperlipidemia: Atorvastatin 40 mg PO HS #Active nicotine abuse: >11 minutes of smoking cessation counseling done. Home Varenicline and NicoDerm to continue. #Goals of care: Full code in hospital. #Anxiety disorder: Bupropion Hcl 150 mg daily, continue Discharge Disposition: Home Discharge Instruct/Medications Diet: Cardiac 2g Na,low cholest Activity: No Restrictions, As Tolerated Scheduled Amoxicillin & Pot Clavulanate (Augmentin Tablet), 875 MG PO BID Aspirin (Aspir-81), 1 TAB PO DAILY, (Reported) Atorvastatin Calcium (Lipitor), 1 TAB PO DAILY, (Reported) Pantoprazole Sodium Sesquihydr (Pantoprazole Sodium), 40 MG PO DAILY Miscellaneous Medications Multiple Vitamins W/ Minerals (Preservision Areds 2), 1 2 PO, (Reported) Discharge Statement: "Patient was advised to return to the ER or call 911 if any headaches, dizziness, shortness of breath, chest pain, abdominal pain, bleeding, fevers, or worsening of medical condition. Patient was counseled about treatment plan, medications, possible side effects, patientverbalized understanding. All questions were answered to the best of my ability. This discharge took greater then 30 minutes in planning, reviewing documentation, counseling the patient, and discussing with other team members." ASSESSMENT ASSESSMENT Assessment Date of Service: May 13, 2025 Billing Provider: PEE BRITO MD Common Visit Codes: [id number]/OBS DISCH DAY >30min JAMEEL MORALES RESIDENT May 13, 2025 09:16 PEE BRITO MD May 15, 2025 20:54
[2025-05-13] MEDS: AZITHROMYCIN 250 MG TAB PO SCH (09:55)
[2025-05-13] MEDS: LACTATED RINGER'S 500 ML IV ONE (12:29)
[2025-05-13 12:48] VITALS: BP 106/63; PULSE 67; RESP 17; TEMP 97.3; O2SAT 97
[2025-05-13] MEDS ORDERED: AUG875T PO (15:24)
[2025-05-13] MEDS ORDERED: PANT40T PO (15:24)
[2025-05-13 16:00] VITALS: BP 103/60; PULSE 60; RESP 16; TEMP 36.3; O2SAT 97
== END 2025-05-13 16:54 | disposition home or self-care (01) | DRG 202 ==
LOC: ER 14:27 → OVERFLOW 22:16 → CENTRAL 23:51 → TELE-CENTR 05-12 12:30
PROVIDERS: ADMIT Internal Medicine Geriatric Medicine; ATTEND Internal Medicine Geriatric Medicine
DX: J20.9 Acute bronchitis, unspecified (principal); N39.0 Urinary tract infection, site not specified; I65.23 Occlusion and stenosis of bilateral carotid arteries; M79.18 Myalgia, other site; E78.5 Hyperlipidemia, unspecified; Z20.822 Contact with and (suspected) exposure to COVID-19; F41.9 Anxiety disorder, unspecified; F17.210 Nicotine dependence, cigarettes, uncomplicated; J32.2 Chronic ethmoidal sinusitis; J32.1 Chronic frontal sinusitis; K21.00 Gastro-esophageal reflux disease with esophagitis, without bleeding; Z98.51 Tubal ligation status; Z81.8 Family history of other mental and behavioral disorders; Z71.6 Tobacco abuse counseling
CPT/HCPCS: 36415; 70450; 71045; 80048; 80053; 80076; 80307; 81001; 83880; 84484; 85025; 85652; 86141; 87086; 87426; 87804; 93005; 93306; 93886; 99291; G0378